=== PATIENT | male | born 1940 | race Caucasian/White ===

== ENCOUNTER 2021-06-14 11:47 | Observation (INO) ==
--- NOTE | 2021-06-14 12:29 | Emergency Department Note ---
Impression & Plan Precordial chest pain, SOB (shortness of breath), History of coronary artery disease ED Provider Note NAME: KATLYN HATHAWAY AGE: 81 SEX: M : 1940 ARRIVES VIA: Ambulance INFORMANT: [Patient] ED PROVIDER(S): [Shoaib Jacinto MD] CHIEF COMPLAINT: Chest pain HISTORY OF PRESENT ILLNESS: The patient is an 81-year-old male presents to the ER with an episode of chest pain this morning. The pain was an 8/10 and was across the chest. No pain radiation. The patient states the pain began at around 1040, just shy of 2 hours ago. 5 minutes into the pain, the patient took 1 nitroglycerin. After around 15 minutes, the pain subsided. He is now pain-free. He was a little bit short of breath with the pain. No nausea, no sweating. He does a history of coronary stenting but has never been diagnosed with an NH. This is the first time he has used nitroglycerin. The patient states that as of late, he has been in baseline health. He has not noticed any exertional chest pain or dyspnea. Of note, on the way to the hospital he was given 4 baby aspirin by EMS. REVIEW OF SYSTEMS: See HPI for pertinent positives and negatives. A total of ten systems were reviewed and were otherwise negative. PMHx/PSHx: See Below SOCIAL HISTORY: See Below. PHYSICAL EXAM: GENERAL: Patient is in no acute distress. HEENT: No acute trauma, normocephalic atraumatic, mucous membranes moist, no nasal congestion, no scleral icterus. NECK: No stridor, no adenopathy, no meningismus, trachea is midline. LUNGS: Clear to auscultation bilaterally, no wheeze, no rhonchi, breath sounds equal. Chest: Nontender chest wall. HEART: Without murmurs gallops or rubs, regular rate and rhythm. ABDOMEN: Soft, nontender, bowel sounds positive, no hernias, no peritonitis. EXTREMITIES: No cyanosis or edema, full range of motion of all the joints without pain or difficulty, no signs for acute trauma. NEUROLOGIC: Oriented x 3, no acute motor or sensory deficits, no focal weakness. SKIN: No rash, no jaundice, no diaphoresis. DIFFERENTIAL DIAGNOSIS: Cardiac ischemia, aortic dissection, pulmonary embolism, pneumothorax, pneumonia, pericarditis, myocarditis, esophageal rupture, GERD, cholecystitis, pancreatitis, musculoskeletal, as well as other pathologies. EMERGENCY DEPARTMENT COURSE/PROCEDURES: ECG: Indication was chest pain. The ECG shows a sinus rhythm with a first- degree AV block. The rate is 65. There is LVH present. There is a potential old septal infarct. No ST elevation, no PVCs. The QTc is 438. Continuous Cardiac Monitoring: An order was placed for continuous cardiac monitoring. The monitor shows a rate of 73 with sinus rhythm with a first- degree block. MEDICAL DECISION MAKING: There is no leukocytosis or concerning anemia. There is a normal platelet count. No coagulopathy. No significant electrolyte abnormality or kidney failure. No concerning liver enzyme elevation. No pancreatitis. Covid testing returned negative. Chest x-ray does not show pneumonia or CHF. No mediastinal widening. ECG shows a sinus rhythm with a first-degree AV block, no obvious ischemia. Cardiac enzyme testing x1 is not consistent with acute cardiac i njury. The patient presents with chest discomfort which was seemingly relieved with nitroglycerin. He does have known coronary disease with 4 coronary stents. Given his history today, given his past coronary stenting, I do think a hospital stay for further cardiac work-up is in order. I spoke with the patient and case management. The on-call hospitalist was consulted. Past Med/Surg History Medical History CAD (coronary atherosclerotic disease) Social History Smoking Status: Former smoker Tobacco Type: Cigarettes Preferred Language: [place] Islander Feels Safe at Home: Yes Allergies Allergies Allergy/AdvReac Type Severity Reaction Status Date / Time lisinopril AdvReac Mild COUGH Verified 06/14/21 14:07 Home Meds Home Medications Medication Instructions Recorded Confirmed allopurinol 300 mg tablet 300 mg PO DAILY 06/14/21 06/14/21 aspirin 81 mg capsule 81 mg PO DAILY 06/14/21 06/14/21 atorvastatin 80 mg tablet 80 mg PO DAILY 06/14/21 06/14/21 clobetasol 0.05 % topical ointment 1 applic TOPICAL DAILY PRN 06/14/21 06/14/21 fenofibrate micronized 67 mg 67 mg PO DAILY 06/14/21 06/14/21 capsule fluocinonide 0.05 % topical cream 1 applic TOPICAL DAILY PRN 06/14/21 06/14/21 isosorbide mononitrate 60 mg 60 mg PO QAM 06/14/21 06/14/21 tablet,extended release 24 hr losartan 25 mg tablet 25 mg PO DAILY 06/14/21 06/14/21 metoprolol succinate 25 mg 25 mg PO DAILY 06/14/21 06/14/21 tablet,extended release 24 hr nitroglycerin 0.4 mg sublingual 0.04 mg SUBLINGUAL DAILY 06/14/21 06/14/21 tablet Results & Data (ED) Vital Signs Vital Signs - 24 hr 06/14/21 11:58 06/14/21 12:22 06/14/21 12:45 Temperature 36.7 C 36.6 C Temperature Source Oral Oral Pulse Rate 73 68 Pulse Rate [Bilateral] 66 Pulse Rate from SpO2 Sensor Pulse Rhythm Regular Regular Pulse Rhythm [Bilateral] Pulse Strength Normal Pulse Strength [Bilateral] Normal Respiratory Rate 18 18 20 Respiratory Effort / Characteristics Non-Labored Non-Labored Respiratory Depth Normal Normal Blood Pressure 138/7 L Blood Pressure [Right Arm] 136/71 Blood Pressure Mean 50 Blood Pressure Mean [Right Arm] 92 Blood Pressure Position [Right Arm] Lying Pulse Oximetry 95 96 96 Oxygen Delivery Method Room Air Room Air Room Air Sepsis Recent Fever Within 48 Hours No Sepsis New/Unexplained Change in Mental Status No Sepsis Action Taken by Nursing No Action Required 06/14/21 13:00 06/14/21 14:41 06/14/21 15:00 Temperature Temperature Source Pulse Rate 60 Pulse Rate [Bilateral] 62 62 Pulse Rate from SpO2 Sensor 60 Pulse Rhythm Pulse Rhythm [Bilateral] Regular Regular Pulse Strength Pulse Strength [Bilateral] Normal Normal Respiratory Rate 16 18 14 Respiratory Effort / Characteristics Non-Labored Non-Labored Respiratory Depth Normal Normal Blood Pressure 136/62 Blood Pressure [Right Arm] 132/63 136/89 Blood Pressure Mean 86 Blood Pressure Mean [Right Arm] 86 104 Blood Pressure Position [Right Arm] Pulse Oximetry 92 92 93 Oxygen Delivery Method Room Air Room Air Room Air Sepsis Recent Fever Within 48 Hours Sepsis New/Unexplained Change in Mental Status Sepsis Action Taken by Nursing 06/14/21 15:30 06/14/21 16:00 06/14/21 16:30 Temperature Temperature Source Pulse Rate 68 Pulse Rate [Bilateral] Pulse Rate from SpO2 Sensor 65 Pulse Rhythm Pulse Rhythm [Bilateral] Pulse Strength Pulse Strength [Bilateral] Respiratory Rate 16 Respiratory Effort / Characteristics Respiratory Depth Blood Pressure 161/66 H 140/66 121/64 Blood Pressure [Right Arm] Blood Pressure Mean 97 90 83 Blood Pressure Mean [Right Arm] Blood Pressure Position [Right Arm] Pulse Oximetry 92 Oxygen Delivery Method Room Air Sepsis Recent Fever Within 48 Hours Sepsis New/Unexplained Change in Mental Status Sepsis Action Taken by Nursing 06/14/21 16:40 06/14/21 16:50 06/14/21 17:00 Temperature Temperature Source Pulse Rate 61 61 67 Pulse Rate [Bilateral] Pulse Rate from SpO2 Sensor 61 59 L 68 Pulse Rhythm Pulse Rhythm [Bilateral] Pulse Strength Pulse Strength [Bilateral] Respiratory Rate 20 18 14 Respiratory Effort / Characteristics Respiratory Depth Blood Pressure 148/65 H Blood Pressure [Right Arm] Blood Pressure Mean 92 Blood Pressure Mean [Right Arm] Blood Pressure Position [Right Arm] Pulse Oximetry 92 93 94 Oxygen Delivery Method Room Air Room Air Room Air Sepsis Recent Fever Within 48 Hours Sepsis New/Unexplained Change in Mental Status Sepsis Action Taken by Nursing 06/14/21 17:10 06/14/21 17:20 06/14/21 17:30 Temperature Temperature Source Pulse Rate 66 61 64 Pulse Rate [Bilateral] Pulse Rate from SpO2 Sensor 66 62 58 L Pulse Rhythm Pulse Rhythm [Bilateral] Pulse Strength Pulse Strength [Bilateral] Respiratory Rate 20 14 16 Respiratory Effort / Characteristics Respiratory Depth Blood Pressure 146/61 H Blood Pressure [Right Arm] Blood Pressure Mean 89 Blood Pressure Mean [Right Arm] Blood Pressure Position [Right Arm] Pulse Oximetry 97 92 94 Oxygen Delivery Method Room Air Room Air Room Air Sepsis Recent Fever Within 48 Hours Sepsis New/Unexplained Change in Mental Status Sepsis Action Taken by Nursing 06/14/21 17:40 Temperature Temperature Source Pulse Rate 60 Pulse Rate [Bilateral] Pulse Rate from SpO2 Sensor 50 L Pulse Rhythm Pulse Rhythm [Bilateral] Pulse Strength Pulse Strength [Bilateral] Respiratory Rate 14 Respiratory Effort / Characteristics Respiratory Depth Blood Pressure Blood Pressure [Right Arm] Blood Pressure Mean Blood Pressure Mean [Right Arm] Blood Pressure Position [Right Arm] Pulse Oximetry 93 Oxygen Delivery Method Room Air Sepsis Recent Fever Within 48 Hours Sepsis New/Unexplained Change in Mental Status Sepsis Action Taken by [facility] Medications Current Medication List: was personally reviewed by me Laboratory Data Attestation: I reviewed the patient's lab results. Result diagrams: 06/14/21 12:42 01/02/22 12:42 Lab Results 06/14/21 06/14/21 06/14/21 Range/Units 12:42 12:42 12:42 WBC 6.15 (4.8-10.8) K/uL RBC 4.45 L (4.7-6.1) M/uL Hgb 14.0 (14.0-18.0) g/dL Hct 42.6 (42-52) % MCV 95.7 (80-100) fL MCH 31.5 (25-34) pg MCHC 32.9 (32-36) g/dL RDW Std Deviation 49.3 H (36.4-46.3) fL RDW Coeff of [place] 14.0 (11.5-14.5) % Plt Count 192 (130-400) K/uL MPV 11.2 H (7.4-10.4) fL Immature Gran % (Auto) 0.3 % Neut % (Auto) 57.6 % Lymph % (Auto) 28.3 % [place] % (Auto) 8.9 % Eos % (Auto) 4.6 % Baso % (Auto) 0.3 % Neut # (Auto) 3.54 (1.4-6.5) K/uL Lymph # (Auto) 1.74 (1.2-3.4) K/uL [place] # (Auto) 0.55 (0.11-0.59) K/uL Eos # (Auto) 0.28 (0-0.5) K/uL Baso # (Auto) 0.02 (0-0.2) K/uL Immature Gran # (Auto) 0.02 (0.00-0.02) K/uL PT 10.5 (9.0-12.0) Seconds INR 1.0 (0.9-1.1) APTT 25.2 (21.0-31.0) Seconds PTT Ratio 1.0 Sodium 138 (136-145) mmol/L Potassium 4.0 (3.5-5.1) mmol/L Chloride 108 H (98-107) mmol/L Carbon Dioxide 25 (21-32) mmol/L Anion Gap 5.0 (3-11) BUN 18 (7-18) mg/dl Creatinine 1.32 (0.6-1.4) mg/dl Est Cr Clr Drug Dosing 46.0 ml/min Est GFR ( Amer) 58.6 ml/min Est GFR (Non-Af Amer) 50.6 ml/min BUN/Creatinine Ratio 13.9 (10-20) Glucose 114 H (70-99) mg/dl Calcium 9.2 (8.5-10.1) mg/dl Total Bilirubin 0.5 (0.2-1) mg/dl AST 24 (15-37) U/L ALT 35 (12-78) Alkaline Phosphatase 74 (45-117) U/L Troponin I < 0.015 (0-0.045) ng/ml Total Protein 6.7 (6.4-8.2) gm/dl Albumin 3.4 (3.4-5.0) gm/dl Globulin 3.3 (2.5-4.0) gm/dl Albumin/Globulin Ratio 1.0 (0.9-2) Lipase 143 (73-393) U/L Specimen Hemolysis SARS-CoV-2, RNA, NAAT (NEGATIVE) 06/14/21 Range/Units 15:03 WBC (4.8-10.8) K/uL RBC (4.7-6.1) M/uL Hgb (14.0-18.0) g/dL Hct (42-52) % MCV (80-100) fL MCH (25-34) pg MCHC (32-36) g/dL RDW Std Deviation (36.4-46.3) fL RDW Coeff of [place] (11.5-14.5) % Plt Count (130-400) K/uL MPV (7.4-10.4) fL Immature Gran % (Auto) % Neut % (Auto) % Lymph % (Auto) % [place] % (Auto) % Eos % (Auto) % Baso % (Auto) % Neut # (Auto) (1.4-6.5) K/uL Lymph # (Auto) (1.2-3.4) K/uL [place] # (Auto) (0.11-0.59) K/uL Eos # (Auto) (0-0.5) K/uL Baso # (Auto) (0-0.2) K/uL Immature Gran # (Auto) (0.00-0.02) K/uL PT (9.0-12.0) Seconds INR (0.9-1.1) APTT (21.0-31.0) Seconds PTT Ratio Sodium (136-145) mmol/L Potassium (3.5-5.1) mmol/L Chloride (98-107) mmol/L Carbon Dioxide (21-32) mmol/L Anion Gap (3-11) BUN (7-18) mg/dl Creatinine (0.6-1.4) mg/dl Est Cr Clr Drug Dosing ml/min Est GFR ( Amer) ml/min Est GFR (Non-Af Amer) ml/min BUN/Creatinine Ratio (10-20) Glucose (70-99) mg/dl Calcium (8.5-10.1) mg/dl Total Bilirubin (0.2-1) mg/dl AST (15-37) U/L ALT (12-78) Alkaline Phosphatase (45-117) U/L Troponin I (0-0.045) ng/ml Total Protein (6.4-8.2) gm/dl Albumin (3.4-5.0) gm/dl Globulin (2.5-4.0) gm/dl Albumin/Globulin Ratio (0.9-2) Lipase (73-393) U/L Specimen Hemolysis SARS-CoV-2, RNA, NAAT NEGATIVE (NEGATIVE) Imaging Data Radiologist's Impression: Chest X-Ray 06/14/21 12:26 SINGLE VIEW CHEST CLINICAL HISTORY: Atypical chest pain. FINDINGS: An AP, portable, upright chest radiograph is obtained. No prior studies are available for comparison at the time of dictation. The heart is mildly enlarged. The pulmonary vasculature is noncongested. Mild scarring /atelectasis is noted at the lung bases. No airspace consolidation or large pleural effusion is identified. No pneumothorax is seen. The skeletal structures are osteopenic. The bony thorax is grossly intact. IMPRESSION: Mild cardiomegaly with no acute cardiopulmonary abnormality. ACT 112: Negative or not required by law. Electronically signed by: Shoaib Frias M.D. 06/14/2021 1:06 PM Discharge Plan Visit Data Chief Complaint: Chest Pain ED Provider: Shoaib Jacinto Discharge Problem: Precordial chest pain, SOB (shortness of breath), History of coronary artery disease Patient Disposition: Admitted As Inpatient Condition: Good Forms Stand Alone Forms: [employer] Prescriptions Prescriptions: No Action fenofibrate micronized 67 mg capsule 67 mg PO DAILY RF: 0 isosorbide mononitrate 60 mg tablet extended release 24 hr 60 mg PO QAM RF: 0 losartan 25 mg tablet 25 mg PO DAILY RF: 0 nitroglycerin 0.4 mg tablet, sublingual 0.04 mg sublingual DAILY RF: 0 metoprolol succinate 25 mg tablet extended release 24 hr 25 mg PO DAILY RF: 0 clobetasol 0.05 % ointment 1 applic TOPICAL DAILY PRN (Reason: Dry Skin) RF: 0 fluocinonide 0.05 % Cream 1 applic TOPICAL DAILY PRN (Reason: Dry Skin) RF: 0 aspirin 81 mg Capsule 81 mg PO DAILY RF: 0 atorvastatin 80 mg tablet 80 mg PO DAILY RF: 0 allopurinol 300 mg tablet 300 mg PO DAILY RF: 0 Referrals Referrals: Donato Delgado DO [Primary Care Provider] -
[2021-06-14 12:53] LABS: Basophils # (auto) 0.02 K/uL (0-0.2); Basophils % (auto) 0.3 %; Eosinophils # (auto) 0.28 K/uL (0-0.5); Eosinophils % (auto) 4.6 %; Hematocrit (blood only) 42.6 % (42-52); Immature Granulocytes # (auto) 0.02 K/uL (0.00-0.02); Immature Granulocytes % (auto) 0.3 %; Lymphocytes # (auto) 1.74 K/uL (1.2-3.4); Lymphocytes % (auto) 28.3 %; Mean Corpuscular Hemoglobin 31.5 pg (25-34); Mean Corpuscular Hgb Conc 32.9 g/dL (32-36); Mean Corpuscular Volume 95.7 fL (80-100); Mean Platelet Volume 11.2 fL (7.4-10.4); Monocytes # (auto) 0.55 K/uL (0.11-0.59); Monocytes % (auto) 8.9 %; Neutrophils # (auto) 3.54 K/uL (1.4-6.5); Neutrophils % (auto) 57.6 %; Platelet Count 192 K/uL (130-400); RDW Standard Deviation 49.3 fL (36.4-46.3); Red Blood Count 4.45 M/uL (4.7-6.1); White Blood Count 6.15 K/uL (4.8-10.8)
[2021-06-14 13:06] LABS: Partial Thromboplastin Time 25.2 Seconds (21.0-31.0); Prothrombin Time 10.5 Seconds (9.0-12.0)
--- NOTE | 2021-06-14 13:07 | XRay Report ---
SINGLE VIEW CHEST CLINICAL HISTORY: Atypical chest pain. FINDINGS: An AP, portable, upright chest radiograph is obtained. No prior studies are available for c omparison at the time of dictation. The heart is mildly enlarged. The pulmonary vasculature is nonco ngested. Mild scarring/atelectasis is noted at the lung bases. No airspace consolidation or large ple ural effusion is identified. No pneumothorax is seen. The skeletal structures are osteopenic. The bon y thorax is grossly intact. IMPRESSION: Mild cardiomegaly with no acute cardiopulmonary abnormality. ACT 112: Negative or not required by law. Electronically signed by: Shoaib Frias M.D. 06/14/2021 1:06 PM
[2021-06-14 13:29] LABS: Alanine Aminotransferase 35 (12-78); Albumin Level 3.4 gm/dl (3.4-5.0); Alkaline Phosphatase 74 U/L (45-117); Aspartate Aminotransferase 24 U/L (15-37); BUN Creatinine Ratio 13.9 (10-20); Bilirubin,Total 0.5 mg/dl (0.2-1); Blood Urea Nitrogen 18 mg/dl (7-18); Calcium 9.2 mg/dl (8.5-10.1); Carbon Dioxide 25 mmol/L (21-32); Chloride 108 mmol/L (98-107); Est GFR (African American) 58.6 ml/min; Est GFR (Non-African American) 50.6 ml/min; Globulin 3.3 gm/dl (2.5-4.0); Glucose 114 mg/dl (70-99); Lipase 143 U/L (73-393); Sodium 138 mmol/L (136-145); Total Protein 6.7 gm/dl (6.4-8.2); Troponin I < 0.015 ng/ml (0-0.045)
--- NOTE | 2021-06-14 19:35 | History & Physical Report ---
Date of Service June 14, 2021 Assessment & Plan (1) Chest pain: (2) History of coronary artery disease: Plan: -Admit to telemetry -Patient presenting from home with reports of chest pain. Resolved after 1 sublingual nitroglycerin taken at home. -In the ED, initial troponin negative, EKG without acute ST changes -Trend troponin, resting echo -Cardiology consult -Continue ASA, statin, beta-paola, nitrate (3) HTN (hypertension): Plan: -BP controlled, continue isosorbide, losartan, metoprolol (4) DVT prophylaxis: Plan: -SQ Lovenox History of Present Illness Chief Complaint: Chest pain Primary Care Provider: Donato Delgado DO 81-year-old male with PMH diet-controlled DM type II, gout, history of CAD, HTN, and other problems listed below who presents the ED for evaluation of chest pain. Patient reports that while sitting at the kitchen table this morning, he developed a midsternal chest pain. Describes the pain as a severe ache. Rates the pain #8/10 at its worst. Patient took 1 sublingual nitroglycerin at home and had resolution of his pain at about 30 minutes. EMS was called and patient was brought to the ED for further evaluation. Patient also reports associated shortness of breath. Denies diaphoresis, nausea, lightheadedness, dizziness, syncopal event. Patient reports he otherwise has been feeling well recently. No other recent illnesses, fevers, chills. Denies abdominal pain, vomiting, diarrhea. No urinary symptoms. In the ED, initial troponin is negative and EKG does not show any acute ST changes. Patient is hemodynamically stable. Allergies Allergy/AdvReac Type Severity Reaction Status Date / Time lisinopril AdvReac Mild COUGH Verified 06/14/21 14:07 Home Medications Medication Instructions Recorded Confirmed Type allopurinol 300 mg tablet 300 mg PO DAILY 06/14/21 06/14/21 History aspirin 81 mg capsule 81 mg PO DAILY 06/14/21 06/14/21 History atorvastatin 80 mg tablet 80 mg PO DAILY 06/14/21 06/14/21 History clobetasol 0.05 % topical ointment 1 applic TOPICAL DAILY PRN 06/14/21 06/14/21 History fenofibrate micronized 67 mg 67 mg PO DAILY 06/14/21 06/14/21 History capsule fluocinonide 0.05 % topical cream 1 applic TOPICAL DAILY PRN 06/14/21 06/14/21 History isosorbide mononitrate 60 mg 60 mg PO QAM 06/14/21 06/14/21 History tablet,extended release 24 hr losartan 25 mg tablet 25 mg PO DAILY 06/14/21 06/14/21 History metoprolol succinate 25 mg 25 mg PO DAILY 06/14/21 06/14/21 History tablet,extended release 24 hr nitroglycerin 0.4 mg sublingual 0.04 mg SUBLINGUAL DAILY 06/14/21 06/14/21 History tablet Past Med/Surg History Medical History Bilateral carotid artery stenosis CAD (coronary atherosclerotic disease) Chronic ischemic heart disease s/p drug eluting stent implantation to the proximal right coronary artery February 26, 2013. Previous RCA stenting performed in 2010. Moderate residual LAD and ramus intermedius stenosis noted. DM type 2 (diabetes mellitus, type 2) Diet controlled Gout HTN (hypertension) Surgical History History of appendectomy History of tonsillectomy and adenoidectomy Family History (Updated 06/14/21 @ 19:32 by NARINDER Ordoñez) Father Prostate cancer Social History Smoking Status: Former smoker Tobacco Type: Cigarettes Hx Alcohol Use: No Preferred Language: [place] Feels Safe at Home: Yes Review of Systems Review of Systems: ROS per HPI, all other systems reviewed and negative Physical Exam Constitutional: WD/WN, vitals as above Eyes: PERRL, conjunctivae normal, anicteric sclerae ENMT: external ear and nose normal, oropharynx normal Respiratory: normal respiratory effort, lungs clear to auscultation Cardiovascular: Rate/Rhythm: regular rate and regular rhythm Vessels: normal peripheral pulses Extremities: no edema Gastrointestinal (Abdomen): normal bowel sounds, soft, nontender, no hepatosplenomegaly Musculoskeletal: no cyanosis or clubbing, extremities motor strength 5/5 Skin: no rashes, warm and dry Neurologic: PERRL, EOMI, accommodation nl, no face palsy, no dysarthria Psychiatric: A+Ox3, euthymic affect Results & Data Results & Data (MN) Vital Signs (Past 12 Hours) Vital Signs Temp Pulse Pulse Resp BP BP Pulse Ox 06/14/21 17:40 60 14 93 06/14/21 17:30 64 16 146/61 H 94 06/14/21 17:20 61 14 92 06/14/21 17:10 66 20 97 06/14/21 17:00 67 14 148/65 H 94 06/14/21 16:50 61 18 93 06/14/21 16:40 61 20 92 06/14/21 16:30 68 16 121/64 92 06/14/21 16:00 140/66 06/14/21 15:30 161/66 H 06/14/21 15:00 60 14 136/62 93 06/14/21 14:41 62 18 136/89 92 06/14/21 13:00 62 16 132/63 92 06/14/21 12:45 68 20 96 06/14/21 12:22 36.6 C 66 18 136/71 96 06/14/21 11:58 36.7 C 73 18 138/7 L 95 Laboratory Results Short CBC 06/14/21 Range/Units 12:42 WBC 6.15 (4.8-10.8) K/uL Hgb 14.0 (14.0-18.0) g/dL Hct 42.6 (42-52) % Plt Count 192 (130-400) K/uL BMP 06/14/21 12:42 Sodium 138 Potassium 4.0 Chloride 108 H Carbon Dioxide 25 BUN 18 Creatinine 1.32 Glucose 114 H Calcium 9.2 Cardiac Enzymes 06/14/21 Range/Units 12:42 Troponin I < 0.015 (0-0.045) ng/ml Liver Function 06/14/21 Range/Units 12:42 Total Bilirubin 0.5 (0.2-1) mg/dl AST 24 (15-37) U/L ALT 35 (12-78) Alkaline Phosphatase 74 (45-117) U/L Albumin 3.4 (3.4-5.0) gm/dl Diagnostic Findings Chest X-Ray 06/14/21 12:26 SINGLE VIEW CHEST CLINICAL HISTORY: Atypical chest pain. FINDINGS: An AP, portable, upright chest radiograph is obtained. No prior studies are available for comparison at the time of dictation. The heart is mildly enlarged. The pulmonary vasculature is noncongested. Mild scarring/atelectasis is noted at the lung bases. No airspace consolidation or large pleural effusion is identified. No pneumothorax is seen. The skeletal structures are osteopenic. The bony thorax is grossly intact. IMPRESSION: Mild cardiomegaly with no acute cardiopulmonary abnormality. ACT 112: Negative or not required by law. Electronically signed by: Shoaib Frias M.D. 06/14/2021 1:06 PM Code Status & VTE Plan Code Status Patient is a full code as per my discussion with him. VTE Prophylaxis Plan VTE Prophylaxis will be ordered: Yes Supervising Physician Co-Signing Physician Notes 81-year-old male with PMH diet-controlled DM type II, gout, history of CAD, HTN, presented to the ED with complaint of chest pain. Patient developed lower chest/upper belly pain around 10:30 AM today morning, at rest, took nitro 25 to 30 minutes afterwards, got relief of chest pain 15 minutes after taking the nitro. Patient not sure whether the nitro helped him or not. Patient describes the pain starting as light and then getting stronger, 8/10 in intensity, associated with shortness of breath, no association with sweating/nausea/vomiting/palpitation. Patient was drinking coffee at the time. Quit smoking 1989, quit drinking in 1989, no history of recreational drug use. No self history of GA/blood clot/cancer/seizure/stroke/COPD. Has stents x4. Family history: Not aware of GA in the family, father had prostate cancer, not sure about mother's medical history. Follows Dr. Ni as his heart doctor. Patient also has history of psoriasis and gout. Medications were reviewed with the patient. Trend troponins, monitor over telemetry, cardiology consult. Upon examination: GENERAL: Alert and oriented x3. NAD, on RA. HEENT: No pallor, no icterus. Pupils equal, round and reactive to light. Oral mucosa moist. NECK: No JVD, no neck masses. HEART: S1 and S2 heard. Regular rate and rhythm. No murmur, no gallop. RESPIRATORY SYSTEM: Normal AP diameter. No accessory muscle use. No wheezing, no crackles. ABDOMEN: Soft, bowel sounds present, nontender, no distention. CENTRAL NERVOUS SYSTEM: No facial droop. Speech is clear. Obeys simple commands. Moves extremities. EXTREMITIES: 1+ BLE edema, no erythema seen. I have seen and examined the patient and have discussed the case with the provider above. I agree with the assessment and plan as stated.
[2021-06-14] MEDS ORDERED: ACETAMINOPHEN 325 MG TAB PO PRN (21:26)
[2021-06-14] MEDS ORDERED: NITROGLYCERIN SL 0.4 MG/TAB TAB SL PRN (21:26)
[2021-06-14] MEDS ORDERED: ENOXAPARIN INJ 40 MG/0.4 ML SYR SQ SCH (22:30)
[2021-06-15 02:50] LABS: Hematocrit (blood only) 42.9 % (42-52); Hemoglobin 14.1 g/dL (14.0-18.0); Mean Corpuscular Hemoglobin 31.5 pg (25-34); Mean Corpuscular Hgb Conc 32.9 g/dL (32-36); Mean Platelet Volume 10.9 fL (7.4-10.4); Platelet Count 175 K/uL (130-400); RDW Coefficient of Variation 14.2 % (11.5-14.5); RDW Standard Deviation 49.7 fL (36.4-46.3); Red Blood Count 4.47 M/uL (4.7-6.1); White Blood Count 9.09 K/uL (4.8-10.8)
[2021-06-15 03:06] LABS: BUN Creatinine Ratio 14.8 (10-20); Calcium 8.9 mg/dl (8.5-10.1); Est GFR (African American) 49.4 ml/min; Est GFR (Non-African American) 42.7 ml/min; Potassium 3.8 mmol/L (3.5-5.1)
[2021-06-15 03:11] LABS: Troponin I 0.018 ng/ml (0-0.045)
[2021-06-15] MEDS ORDERED: allopurinoL 300 MG TAB PO SCH (09:00)
[2021-06-15] MEDS ORDERED: ASPIRIN 81 MG ECTAB PO SCH (09:00)
[2021-06-15] MEDS ORDERED: FENOFIBRATE NANOCRYSTALLIZED 48 MG TABLET SCH (09:00)
[2021-06-15] MEDS ORDERED: LOSARTAN POTASSIUM 25 MG TAB PO SCH (09:00)
[2021-06-15] MEDS ORDERED: ATORVASTATIN 40 MG TAB PO SCH (09:00)
[2021-06-15] MEDS ORDERED: METOPROLOL SUCC 25MG EXT REL TAB PO SCH (09:00)
[2021-06-15] MEDS ORDERED: ISOSORBIDE MONO EXTENDED REL 60 MG TABCR PO SCH (09:00)
[2021-06-15] MEDS ORDERED: SODIUM CHLORIDE 0.9% 1000ML 1,000 ML IV SCH (09:45)
--- NOTE | 2021-06-15 09:56 | Cardiology Consultation ---
Date of Consultation June 15, 2021 Assessment & Plan (1) Chest pain: (2) History of coronary artery disease: This patient has a history of coronary artery disease with known episodes of angina. He has not had an episode of chest pain for some time and this episode was relieved with 1 sublingual nitroglycerin without a reoccurrence. His cardiac markers are negative. His EKG is unchanged. He is anxious to go home and I think he should be discharged to outpatient follow-up. I will a rrange follow-up with our clinic. History of Present Illness Attending Physician: Yin Poole MD History of Present Illness The patient has history of coronary artery disease as outlined below. He does have chronic angina but it is infrequent and he has not had any chest pain in a while. He was sitting with some friends having coffee around noon yesterday. He had chest discomfort and took 1 sublingual nitroglycerin which relieved his pain after about 20 minutes. He has not had any further chest pain. He denies shortness of breath orthopnea. No lower extremity edema or productive cough. His cardiac markers are negative and his EKG has not changed. Past medical history: 1. Chronic ischemic heart disease s/p drug eluting stent implantation to the proximal right coronary artery February 26, 2013. Previous RCA stenting performed in 2010. Moderate residual LAD and ramus intermedius stenosis noted. -Stable chronic class 2 angina 2. Mild aortic stenosis - stable/gradients unchanged per echocardiogram March 13, 2021 3. Hypertension - elevated BP in office with h/o borderline resting hypotension 4. Dyslipidemia - controlled; tolerating 80 mg atorvastatin + fenofibrate 5. Mild bilateral carotid vascular disease 6. CKD - 3b Allergies Allergy/AdvReac Type Severity Reaction Status Date / Time lisinopril AdvReac Mild COUGH Verified 06/14/21 14:07 Home Medications Medication Instructions Recorded Confirmed Type allopurinol 300 mg tablet 300 mg PO DAILY 06/14/21 06/14/21 History aspirin 81 mg capsule 81 mg PO DAILY 06/14/21 06/14/21 History atorvastatin 80 mg tablet 80 mg PO DAILY 06/14/21 06/14/21 History clobetasol 0.05 % topical ointment 1 applic TOPICAL DAILY PRN 06/14/21 06/14/21 History fenofibrate micronized 67 mg 67 mg PO DAILY 06/14/21 06/14/21 History capsule fluocinonide 0.05 % topical cream 1 applic TOPICAL DAILY PRN 06/14/21 06/14/21 History isosorbide mononitrate 60 mg 60 mg PO QAM 06/14/21 06/14/21 History tablet,extended release 24 hr losartan 25 mg tablet 25 mg PO DAILY 06/14/21 06/14/21 History metoprolol succinate 25 mg 25 mg PO DAILY 06/14/21 06/14/21 History tablet,extended release 24 hr nitroglycerin 0.4 mg sublingual 0.04 mg SUBLINGUAL DAILY 06/14/21 06/14/21 History tablet Patient History Medical History Bilateral carotid artery stenosis CAD (coronary atherosclerotic disease) Chronic ischemic heart disease s/p drug eluting stent implantation to the proximal right coronary artery February 26, 2013. Previous RCA stenting performed in 2010. Moderate residual LAD and ramus intermedius stenosis noted. DM type 2 (diabetes mellitus, type 2) Diet controlled Gout HTN (hypertension) Surgical History History of appendectomy History of tonsillectomy and adenoidectomy Family History Father Prostate cancer Social History Smoking Status: Former smoker Tobacco Type: Cigarettes Second Hand Exposure: No; Do You Dip or Chew Tobacco: No; Hx Alcohol Use: No Hx Substance Use: No Preferred Language: Sinhala Communication Ability: Effective [employer] Required: No Beliefs That Will Affect Care: None Current Living Situation: Spouse Current Living Situation Comment: at home with Other Information That Helps Us Care for You: No Feels Safe at Home: Yes Safety Concerns: Feels Safe At This Time Assistive Devices: None Review of Systems Review of Systems: Review of Systems: See HPI for pertinent positives. All other 10 point review of systems are negative. Physical Exam Physical Exam: General: no acute distress and stated age Head: normocephalic, no masses, lesions, tenderness or abnormalities Eyes: conjunctiva are pink and non-injected, sclera clear Neck: supple, no adenopathy, no bruits, normal jugular venous pulse, no hepatojugular reflux Chest: normal shape and normal respiratory effort Lungs: clear to auscultation and percussion Cardiac Exam: - regular rate & rhythm, no murmurs gallops or rubs - normal S1, normal S2 Pulses: 2(+) throughout Abdomen: abdomen soft, non-tender, no abnormal masses and no hepatosplenomegaly Musculoskeletal: no gait disturbance, no joint inflammation, no deforming arthritis Extremities: no edema and no cyanosis Neuro: grossly normal exam Results & Data ([facility]) Vital Signs (Past 12 Hours) Vital Signs Temp Pulse Pulse Resp BP BP Pulse Ox 06/15/21 07:51 36.8 C 72 18 171/86 H 93 06/15/21 02:13 36.7 C 66 18 151/55 H 93 06/14/21 22:30 67 20 141/70 H 93 06/14/21 22:00 69 19 129/72 91 Laboratory Results Laboratory Results - last 24 hr 06/14/21 06/14/21 06/15/21 15:03 21:38 02:41 WBC RBC Hgb Hct MCV MCH MCHC RDW Std Deviation RDW Coeff of [place] Plt Count MPV Sodium 140 Potassium 3.8 Chloride 109 H Carbon Dioxide 25 Anion Gap 6.0 BUN 23 H Creatinine 1.52 H Est Cr Clr Drug Dosing 40.0 Est GFR ( Amer) 49.4 Est GFR (Non-Af Amer) 42.7 BUN/Creatinine Ratio 14.8 Glucose 106 H Calcium 8.9 Troponin I < 0.015 0.018 SARS-CoV-2, RNA, NAAT NEGATIVE 06/15/21 02:41 WBC 9.09 RBC 4.47 L Hgb 14.1 Hct 42.9 MCV 96.0 MCH 31.5 MCHC 32.9 RDW Std Deviation 49.7 H RDW Coeff of [place] 14.2 Plt Count 175 MPV 10.9 H Sodium Potassium Chloride Carbon Dioxide Anion Gap BUN Creatinine Est Cr Clr Drug Dosing Est GFR ( Amer) Est GFR (Non-Af Amer) BUN/Creatinine Ratio Glucose Calcium Troponin I SARS-CoV-2, RNA, NAAT Medications Administered Current Inpatient Medications Acetaminophen (Acetaminophen 325 Mg Tab) 650 mg PO Q4H PRN PRN Reason: Pain or Fever Stop: 07/14/21 21:25 Allopurinol (Allopurinol 300 Mg Tab) 300 mg PO DAILY KUN Stop: 07/15/21 08:59 Last Admin: 06/15/21 09:50 Dose: 300 mg Documented by: Aspirin (Aspirin 81 Mg Ectab) 81 mg PO DAILY KUN Stop: 07/15/21 08:59 Last Admin: 06/15/21 09:50 Dose: 81 mg Documented by: Atorvastatin Calcium (Atorvastatin 40 Mg Tab) 80 mg PO DAILY KUN Stop: 07/15/21 08:59 Last Admin: 06/15/21 09:49 Dose: 80 mg Documented by: Enoxaparin Sodium (Enoxaparin Inj 40 Mg/0.4 Ml Syr) 40 mg SQ HS [facility] Stop: 07/14/21 22:29 Last Admin: 06/14/21 23:04 Dose: 40 mg Documented by: Fenofibrate (Fenofibrate Nanocrystallized 48 Mg Tablet) 48 mg NA DAILY [facility] Stop: 07/15/21 08:59 Last Admin: 06/15/21 09:49 Dose: 48 mg Documented by: Sodium Chloride (Nss 1000ml) 1,000 mls @ 80 mls/hr IV .[id number] [facility] Stop: 06/15/21 22:14 Last Admin: 06/15/21 09:51 Dose: 80 mls/hr Documented by: Isosorbide Mononitrate (Isosorbide [place] Extended Rel 60 Mg Tabcr) 60 mg PO QAM [facility] Stop: 07/15/21 08:59 Last Admin: 06/15/21 09:49 Dose: 60 mg Documented by: Losartan Potassium (Losartan Potassium 25 Mg Tab) 25 mg PO DAILY KUN Stop: 07/15/21 08:59 Last Admin: 06/15/21 09:50 Dose: 25 mg Documented by: Metoprolol Succinate (Metoprolol Succ 25mg Ext Rel Tab) 25 mg PO DAILY [facility] Stop: 07/15/21 08:59 Last Admin: 06/15/21 09:50 Dose: 25 mg Documented by: Nitroglycerin (Nitroglycerin Sl 0.4 Mg/Tab Tab) 0.4 mg SL UD PRN PRN Reason: Chest Pain Stop: 07/14/21 21:25
--- NOTE | 2021-06-15 12:56 | Electrocardiogram Report ---
Test Reason : Blood Pressure : / mmHG Vent. Rate : 065 BPM Atrial Rate : 065 BPM P-R Int : 240 ms QRS Dur : 120 ms QT Int : 422 ms P-R-T Axes : 003 -42 076 degrees QTc Int : 438 ms Sinus rhythm with 1st degree A-V block Left axis deviation Left ventricular hypertrophy with QRS widening and repolarization abnormality Abnormal ECG When compared with ECG of 26-FEB-2013 14:09, No significant change Confirmed by Moises Reagan ([id number]) on 06/15/2021 12:56:22 PM Referred By: REFERRED SELF Confirmed By:oMises Reagan
--- NOTE | 2021-06-15 14:25 | Electrocardiogram Report ---
Test Reason : Blood Pressure : / mmHG Vent. Rate : 066 BPM Atrial Rate : 066 BPM P-R Int : 254 ms QRS Dur : 120 ms QT Int : 436 ms P-R-T Axes : -11 -42 074 degrees QTc Int : 457 ms Sinus rhythm with 1st degree A-V block Left axis deviation Left ventricular hypertrophy with QRS widening and repolarization abnormality Abnormal ECG When compared with ECG of 14-JUN-2021 11:51, Minimal criteria for Septal infarct are no longer Present Confirmed by Moises Reagan ([id number]) on 06/15/2021 2:25:23 PM Referred By: REFERRED SELF Confirmed By:Moises Reagan
--- NOTE | 2021-06-15 15:17 | Discharge Summary ---
Date of Service June 15, 2021 Admission HPI Per Admitting Provider 81-year-old male with PMH diet-controlled DM type II, gout, history of CAD, HTN, and other problems listed below who presents the ED for evaluation of chest pain. Patient reports that while sitting at the kitchen table this morning, he developed a midsternal chest pain. Describes the pain as a severe ache. Rates the pain #8/10 at its worst. Patient took 1 sublingual nitroglycerin at home and had resolution of his pain at about 30 minutes. EMS was called and patient was brought to the ED for further evaluation. Patient also reports associated shortness of breath. Denies diaphoresis, nausea, lightheadedness, dizziness, syncopal event. Patient reports he otherwise has been feeling well recently. No other recent illnesses, fevers, chills. Denies abdominal pain, vomiting, diarrhea. No urinary symptoms. In the ED, initial troponin is negative and EKG does not show any acute ST changes. Patient is hemodynamically stable. Admission Exam Per Admitting Provider GENERAL: Alert and oriented x3. NAD, on RA. HEENT: No pallor, no icterus. Pupils equal, round and reactive to light. Oral mucosa moist. NECK: No JVD, no neck masses. HEART: S1 and S2 heard. Regular rate and rhythm. No murmur, no gallop. RESPIRATORY SYSTEM: Normal AP diameter. No accessory muscle use. No wheezing, no crackles. ABDOMEN: Soft, bowel sounds present, nontender, no distention. CENTRAL NERVOUS SYSTEM: No facial droop. Speech is clear. Obeys simple commands. Moves extremities. EXTREMITIES: 1+ BLE edema, no erythema seen. Principal Diagnosis Chest pain History of coronary artery disease Discharge Exam GENERAL: Alert and oriented x3. NAD, on RA. HEENT: No pallor, no icterus. Pupils equal, round and reactive to light. Oral mucosa moist. NECK: No JVD, no neck masses. HEART: S1 and S2 heard. Regular rate and rhythm. No murmur, no gallop. RESPIRATORY SYSTEM: Normal AP diameter. No accessory muscle use. No wheezing, no crackles. ABDOMEN: Soft, bowel sounds present, nontender, no distention. CENTRAL NERVOUS SYSTEM: No facial droop. Speech is clear. Obeys simple commands. Moves extremities. EXTREMITIES: No edema, no erythema seen. Discharge Data Allergies Allergy/AdvReac Type Severity Reaction Status Date / Time lisinopril AdvReac Mild COUGH Verified 06/14/21 14:07 Consultations 06/14/21 14:49 ED Decision to Admit Stat 06/14/21 21:26 Consult Cardiology Routine Hospital Course (1) Chest pain: (2) History of coronary artery disease: 81-year-old male with PMH diet-controlled DM type II, gout, history of CAD, HTN, presented to the ED 06/14/21 with complaint of chest pain. Patient developed lower chest/upper belly pain around 10:30 AM on the day of arrival, at rest, took nitro 25 to 30 minutes afterwards, got relief of chest pain 15 minutes after taking the nitro. Patient not sure whether the nitro helped him or not. Patient describes the pain starting as light and then getting stronger, 8/10 in intensity, associated with shortness of breath, across the upper belly/lower chest, no association with sweating/nausea/vomiting/palpitation. Patient was drinking coffee at the time. Quit smoking 1989, quit drinking in 1989, no history of recreational drug use. No self history of VA/blood clot/cancer/seizure/stroke/COPD. Has stents x4. Family history: Not aware of VA in the family, father had prostate cancer, not sure about mother's medical history. Follows Dr. Mcguire as his heart doctor. Patient also has history of psoriasis and gout. His troponin trends were negative, admitting EKG was sinus rhythm with first- degree AV block with no acute ST or T changes. Follow-up EKG next morning with no interval EKG changes. Echo was done 06/15/2021 with EF of 50 to 55%, LV wall motion normal, LV size normal. Cardiology evaluated the patient while inpatient, plan to follow-up as an outpatient. Cardiology okay with discharge. Patient denies any further chest pain while inpatient. Following instruction communicated at the point of discharge: Follow-up with your primary care physician within a week time. Follow-up with your cardiology in a month time. If you have any further chest pain, communicate with you PCP or emergency immediately. Take your medications as prescribed. Total Time Total Time Spent Total Time Spent (In Minutes): 35 Discharge Plan Discharge Items Patient Disposition: Home - Self-Care Reason For Visit: CHEST PAIN Discharge Diagnosis: Chest pain History of coronary artery disease Condition on Discharge: Good Activity: Resume your previous activity Non-emergency contact: Primary Care Provider Call non-emergency contact if: you have any medication questions, your symptoms worsen, your pain is worsening, your pain is unusual for you and your temperature is above 101 Follow-up/Referrals: Donato Delgado V., [Primary Care Provider] - (Date & Time 06/22/2021 11:00 AM Provider Donato Delgado Jr., [facility] ) Diet: Heart Healthy Addtl Attending Provider Instructions: Follow-up with your primary care physician within a week time. Follow-up with your cardiology in a month time. If you have any further chest pain, communicate with you PCP or emergency immediately. Take your medications as prescribed. Pending Studies at Discharge: No Stand-Alone Forms: My [employer], Smoking Cessation Medications and DC Order Prescriptions: Continued fenofibrate micronized 67 mg capsule 67 mg PO DAILY RF: 0 isosorbide mononitrate 60 mg tablet extended release 24 hr 60 mg PO QAM RF: 0 losartan 25 mg tablet 25 mg PO DAILY RF: 0 nitroglycerin 0.4 mg tablet, sublingual 0.04 mg sublingual DAILY RF: 0 metoprolol succinate 25 mg tablet extended release 24 hr 25 mg PO DAILY RF: 0 clobetasol 0.05 % ointment 1 applic TOPICAL DAILY PRN (Reason: Dry Skin) RF: 0 fluocinonide 0.05 % Cream 1 applic TOPICAL DAILY PRN (Reason: Dry Skin) RF: 0 aspirin 81 mg Capsule 81 mg PO DAILY RF: 0 atorvastatin 80 mg tablet 80 mg PO DAILY RF: 0 allopurinol 300 mg tablet 300 mg PO DAILY RF: 0 Discharge Orders: Discharge Order (Routine); Ordered 06/15/21 Ordered By: Yin Poole Admission Data Admit Date/Time: 06/14/21 15:07 Attending Provider: Yin Poole Admit Provider: Yin Poole Primary Care Provider: Donato Delgado V. Other Providers: Yin Poole ; Dimas Mcgrath
== END 2021-06-15 15:57 | disposition home or self-care (01) ==
LOC: ED 11:47 → EDINP 11:47